=== PATIENT | male | born 1935 | race Caucasian/White ===

== ENCOUNTER 2016-09-29 20:13 | Inpatient (IN) | payer MEDICARE ==
--- NOTE | ~2016-09-29 | CR72 ---
[facility] A Service of [facility] RADIOLOGY TEXT RESULTS PATIENT: HEIKE CARTER LOCATION: [facility] 55[facility] : 34 UNIT #: [id number] AGE: [address]: Rosi Mijares MD SEX: M ORDER DR: [id number] [place] [id number] [facility]. [place], [place] [address] [id number] I MR#: [id number] Acc #: [id number] NAME: HEIKE CARTER. : 1935 SEX: M STUDY DATE/TIME: 09/29/2016 19:41 UNIT: [facility] ROOM: [facility] STUDY DESCRIPTION: CR Chest Single View Portable Attending Physician: Rosi Mijares M.D. Ordering Physician: Anthony French M.D. Primary Care Physician: Christy Kilgore M.D. MEDICAL IMAGING REPORT This report is preliminary unless electronic signature is present EXAM Portable chest. HISTORY Fever, hypoxia, congestion x2 weeks. COMPARISON 03/14/2014 FINDINGS Portable view of the chest demonstrates cardiomegaly. Prominence of the pulmonary vascular and interstitium may reflect underlying CHF. Loss of the right hemidiaphragm blunting the right CP angles suggests small right pleural effusion. Degenerative changes seen in the right shoulder. Sclerotic lesion noted in the left scapula may represent a benign bone lesion or enchondroma. IMPRESSION Findings suggestive of [id number] CHF and a small right pleural effusion. Dictated by... Declan Krishnan M.D. THIS IS AN ELECTRONICALLY VERIFIED REPORT Declan Krishnan M.D. at 09/30/2016 8:09 PM INGE/messi TD: 09/30/2016 08:49 JOB #: [id number] [facility] A Service of [facility] RADIOLOGY TEXT RESULTS PATIENT: HEIKE CARTER LOCATION: [facility] : 34 UNIT #: [id number] AGE: [address]: Rosi Mijares MD SEX: M ORDER DR: MEDICAL IMAGING REPORT Page 1 of 1 COPY
--- NOTE | ~2016-09-29 | CR72 ---
[facility] A Service of [facility] RADIOLOGY TEXT RESULTS PATIENT: HEIKE CARTER LOCATION: [place] [address] : 34 UNIT #: [id number] AGE: [address]: Rosi Mijares MD SEX: M ORDER DR: [id number] [facility] [address] [facility]. [place], [place] [address] [id number] I MR#: [id number] Acc #: [id number] NAME: HEIKE CARTER. : 1935 SEX: M STUDY DATE/TIME: 10/01/2016 15:38 UNIT: [facility] ROOM: [facility] STUDY DESCRIPTION: CR Chest Single View Portable Attending Physician: Rosi Mijares M.D. Ordering Physician: Gege Kimbrough D.O. Primary Care Physician: Christy Kilgore M.D. MEDICAL IMAGING REPORT This report is preliminary unless electronic signature is present EXAM Portable chest HISTORY Pneumonia, cough, congestion and shortness of air x2 weeks. COMPARISON 09/29/2016 FINDINGS Portable view of the chest demonstrates moderate lung volumes. There is loss of the right hemidiaphragm and blunting of the right CP angle suggesting small right pleural effusion. There is right basilar parenchymal opacity which may represent atelectasis or infiltrate. No dense consolidation. Probable trace amount of left sided pleural fluid. Stable cardiomegaly. Large air-filled middle mediastinal density consistent with a hiatal hernia. Upper lungs remain clear. No visible pneumothorax. Arthritic change is seen in the left shoulder. Dictated by... Declan Krishnan M.D. THIS IS AN ELECTRONICALLY VERIFIED REPORT Declan Krishnan M.D. at 10/02/2016 10:05 AM INGE/narinder TD: 10/02/2016 08:36 JOB #: [id number] MEDICAL IMAGING REPORT Page 1 of 1 COPY
--- NOTE | ~2016-09-29 | CO ---
Unit #: [id number] #: [id number] Patient: HEIKE CARTER [id number] [facility]. [address] [place], [place] [address] [id number] I MR#: [id number] NAME: HEIKE CARTER ROOM: 553 Age: 81 Sex: M Admission Date: 09/29/2016 : 1935 Attending Physician: Rosi Mijares M.D. Primary Care Physician: Christy Kilgore M.D. Consultation Date: 10/03/2016 CONSULTATION REPORT REASON FOR CONSULT Congestive heart failure. HISTORY OF PRESENT ILLNESS This is an 81-year-old white male known to Dr. Correia with a past medical history of coronary artery disease, status post PCI and stents several years ago with records pending. Patient had a 2D echocardiogram on March 18, 2014, which revealed a left ventricular ejection fraction of 40% to 45% with moderate hypokinesis of the left ventricle, moderate to severe mitral regurgitation, and moderate tricuspid regurgitation. Additional past medical history includes permanent atrial fibrillation, on Coumadin, hypertension, hyperlipidemia, COPD, chronic systolic congestive heart failure, and an old right bundle branch block. The patient has reported Parkinson, rheumatoid arthritis, GERD, and colon polyps. The patient was recently admitted to [facility] with pneumonia and a hiatal hernia. He presented to the emergency department with complaints of shortness of breath. The shortness of breath has been present for the last several days. He has also had a cough and chills. There are no reports of fever. He denies chest pain. He has had some shortness of breath with exertion. He sleeps with two pillows and denies PND or orthopnea. He admits to occasional palpitations but nothing sustained. He has had some recent diarrhea. He was admitted to the hospital with concern for pneumonia, congestive heart failure, and COPD. He was started on vancomycin and IV Lasix. In addition, he was given Solu-Medrol and DuoNebs. Influenza A and B were negative. Blood cultures were negative. BNP was mildly elevated at 473 on admission. Chest x-ray revealed findings suggestive of mild to moderate congestive heart failure with a small right pleural effusion. Cardiology was consulted for congestive heart failure. PAST MEDICAL HISTORY 1. Coronary artery disease with history of PCI and stents years ago. Records pending. 2. A 2D echocardiogram on March 18, 2014, revealed a moderately dilated left ventricle, ejection fraction 40% to 45%, moderate hypokinesis of the left ventricle, moderate to severe mitral regurgitation, and moderate tricuspid regurgitation. 3. Permanent atrial fibrillation on chronic anticoagulation with Coumadin. 4. Hypertension. 5. Hyperlipidemia. Unit #: [id number] #: [id number] Patient: HEIKE CARTER 6. Old right bundle branch block. 7. Chronic systolic congestive heart failure. 8. Chronic obstructive pulmonary disease. 9. Gastroesophageal reflux disease. 10. Reported Parkinson. 11. Rheumatoid arthritis. 12. Colon polyps. 13. Reformed tobacco abuse. PAST SURGICAL HISTORY 1. Knee surgery. 2. Cardiac catheterization, PCI, and stents. HOME MEDICATIONS 1. Milk of Magnesia 30 mL p.o. daily. 2. Multivitamin 1 tablet p.o. daily. 3. [place] 7.5/325 mg 1 tablet p.o. every 6 hours p.r.n. 4. Pepcid 20 mg p.o. daily. 5. Senna 8.6 mg p.o. daily. 6. Folic acid 1 mg p.o. daily. 7. Gabapentin 600 mg p.o. b.i.d. 8. Lasix 40 mg p.o. b.i.d. 9. Melatonin 6 mg p.o. at bedtime. 10. Methotrexate 2.5 mg p.o. every 7 days on Sunday. 11. Coreg 6.25 mg p.o. b.i.d. 12. Coumadin 5 mg p.o. daily. 13. Daliresp 500 mcg p.o. daily. 14. Ipratropium and albuterol 2.5 mg inhalation q.4 p.r.n. 15. Potassium chloride 10 mEq p.o. daily. 16. Protonix 40 mg p.o. b.i.d. ALLERGIES No known drug allergies. SOCIAL HISTORY The patient is a reformed smoker. There are no reports of alcohol or illicit drug use. The patient currently resides in a prison. FAMILY HISTORY Cancer. REVIEW OF SYSTEMS A 10-point review of systems is negative except for details noted above in the History of Present Illness. PHYSICAL EXAMINATION VITAL SIGNS: Temperature 97.6, pulse 59, and blood pressure 111/68. CONSTITUTIONAL: This is an 81-year-old white male in no acute distress. SKIN: Warm and dry. NECK: Supple. No jugular vein distention. No hepatojugular reflux. Normal carotid upstrokes. No carotid bruits auscultated. HEART: S1 and S2. Regular rate and rhythm. No murmurs, rubs, or gallops. LUNGS: Bilateral breath sounds have scattered wheezes and rhonchi. ABDOMEN: Soft, nontender, and nondistended. Positive bowel sounds auscultated x4 quadrants. No ascites noted. EXTREMITIES: Bilateral lower extremities have no pretibial pitting edema. DP and PT pulses 2+. Capillary refill less than 3 seconds. Unit #: [id number] #: [id number] Patient: HEIKE CARTER DIAGNOSTIC STUDIES LABORATORY: White blood cell count 5.4, hemoglobin 10.9, hematocrit 34.3, and platelets 172,000. Sodium 140, potassium 3.5, chloride 90, CO2 of 41, BUN 30, creatinine 1.1, glucose 156, total protein 6.2, albumin 2.8, and magnesium 2.1 INR 3. Previous INR 1.7 to 2.5. Troponin 0.05 and 0.05. Influenza A and B negative. Urinalysis with 3+ leukocytes and positive yeast. Blood culture, preliminary, negative. BNP 473 on September 30, 2016. IMAGING: Chest x-ray initially on September 29, 2016, revealed a suggestion of mild to moderate congestive heart failure with a small right pleural effusion. CARDIOLOGY: EKG revealed atrial fibrillation with rapid ventricular response at 120 beats per minute. Motion artifact. Right bundle branch block. QTc prolonged at 517 msec. IMPRESSION 1. Acute hypoxic respiratory failure. 2. Acute exacerbation of chronic obstructive pulmonary disease. 3. Pneumonia. 4. Acute on chronic systolic congestive heart failure, mild. 5. History of moderate to severe mitral regurgitation and moderate tricuspid regurgitation. 6. Nonsustained ventricular tachycardia. 7. Permanent atrial fibrillation with rapid ventricular response. 8. Hypertension. 9. Hyperlipidemia. 10. Old right bundle branch block. 11. Coronary artery disease with history of percutaneous coronary intervention and stents. Details pending. 12. Large hiatal hernia. PLAN 1. The patient presented to the hospital with complaints of shortness of breath. He was admitted for acute exacerbation of COPD and pneumonia, as well as congestive heart failure. 2. Cardiology was consulted for management of congestive heart failure. 3. The patient is on IV Lasix which can likely be changed to oral dosing soon. 4. He is on a beta emil. Will initiate an SHERRY inhibitor for afterload reduction. 5. The patient has a history of CAD but denies chest pain. Will obtain previous stress test and/or cardiac catheterization reports from Dr. Correia's office. If no recent testing, could consider repeat ischemic workup once lungs stable. 6. The patient is on Coumadin for chronic anticoagulation. His INR is currently 3. 1. Dictated by... Ayanna Davison APRN for Easton Lloyd/ivy TD: 10/05/2016 17:53 JOB #: [id number] Unit #: [id number] #: [id number] Patient: HEIKE CARTER CONSULTATION REPORT Page 1 of 1 X X CONSULTATION REPORT
--- NOTE | ~2016-09-29 | TOC ---
Unit #: [id number] #: [id number] Patient: HEIKE CARTER [id number] [address] [address] [id number] I MR#: [id number] NAME: HEIKE CARTER. ROOM: 553 Age: 81 Sex: M Admission Date: 09/29/2016 : 1935 Attending Physician: Rosi Mijares M.D. Primary Care Physician: Christy Kilgore M.D. TRANSFER OF CARE SUMMARY DISCHARGE DIAGNOSES 1. Acute on chronic hypercapnic hypoxic respiratory failure. 2. Acute diastolic heart rate failure. 3. Chronic atrial fibrillation with PVCs, currently sinus pauses 2.5 seconds and bradycardia. 4. Acute chronic obstructive pulmonary disease exacerbation. 5. Right lower lobe pneumonia with Stenotrophomonas. 6. Super therapeutic INR. The patient's Coumadin is on hold. 7. Mild hyponatremia. 8. Sinus pauses. Metoprolol is on hold. 9. Chronic respiratory failure with hypoxia. 10. Coronary artery disease with previous stents. 11. Rheumatoid arthritis. 12. Hypertension. 13. Gastroesophageal reflux disease. 14. Hiatal hernia. 15. Chronic pain. 16. BPH. 17. History of Parkinson disease. CONSULTANTS Dr. Kohli. Dr. Posadas. PROCEDURES PERFORMED None. DIAGNOSTIC DATA LABORATORY: Sputum culture is growing Stenotrophomonas. INR is 5.1. White blood cell count 11.6, hemoglobin 11.4, platelets 212. Sodium 134, potassium 3.8, creatinine 1.0, calcium 8.2. Blood cultures negative. Troponin 0.04. C-diff negative. Influenza A and B negative. IMAGING: Chest x-ray shows right basilar atelectasis versus infiltrates. HOSPITAL COURSE The patient is an 81-year-old patient admitted with shortness of breath. Acute on chronic hypercapnic hypoxic respiratory failure: Currently he is on 2 liters. Continue with oxygen. Acute diastolic heart failure: The patient was seen by Dr. Kohli. The patient received diuretics. Currently he is on Lasix 40 mg b.i.d. Continue with that. Unit #: [id number] #: [id number] Patient: HEIKE CARTER Acute chronic obstructive pulmonary disease with exacerbation: The patient was started on IV Solu-Medrol and duo-nebs. Currently breathing better. He has received Depo-Medrol. Dr. Posadas is closely following. Right lower lobe pneumonia with Stenotrophomonas: The patient is currently on broad spectrum antibiotics. He is on IV Rocephin and Zithromax. Chronic atrial fibrillation: Multiple PVCs. Currently having sinus pauses up to 2.5 seconds. Metoprolol is on hold. Cardiology notified. Super therapeutic INR: Coumadin is on hold. INR is 5.1. Monitor closely daily. The patient need rehab. Discussed with the daughter. Dictated by... Easton Chan TD: 10/06/2016 13:14 JOB #: [id number] TRANSFER OF CARE SUMMARY Page 1 of 1 X Rosi Mijares MD TRANSFER OF CARE SUMMARY
--- NOTE | ~2016-09-29 | CR97 ---
[facility] A Service of [facility] RADIOLOGY TEXT RESULTS PATIENT: HEIKE CARTER LOCATION: [facility] 55[facility] : 34 UNIT #: [id number] AGE: [address]: Rosi Mijares MD SEX: M ORDER DR: [id number] [facility] [address] [facility]. [place], [place] [address] [id number] I MR#: [id number] Acc #: [id number] NAME: HEIKE CARTER. : 1935 SEX: M STUDY DATE/TIME: 10/02/2016 9:11 UNIT: [facility] ROOM: [facility] STUDY DESCRIPTION: CR Esophagram Attending Physician: Rois Mijares M.D. Ordering Physician: Gege Kimbrough D.O. Primary Care Physician: Christy Kilgore M.D. MEDICAL IMAGING REPORT This report is preliminary unless electronic signature is present EXAM Single contrast barium esophagram. INDICATIONS This patient has a history of dysphagia and reflux as well as Parkinson disease. TECHNIQUE Patient is relatively immobile. He was placed supine on the fluoroscopy table and the table was tilted. He was subsequently administered thin barium. No obvious stricture or mass lesion was seen. Patient does appear to have abnormal esophageal motility with poor stripping of the esophagus and multiple tertiary contractions seen. There did appear to be some spontaneous reflux. I did not see any definite evidence of aspiration, although there may have been some penetration. Moderate to large hiatal hernia was again noted. This was also seen on patient's prior chest CT from November 23, 2012. Total fluoroscopy time was 1.7 minutes and a total of 7 fluoroscopic images were obtained. IMPRESSION 1. This was a extremely technically limited examination due to this patient's limited mobility. I did not see any obvious stricture or mass lesion, although the patient was noted to have disordered esophageal motility with poor stripping of the esophagus and multiple tertiary contractions noted. There also did appear to be some reflux. 2. Vdrhujvw-jt-dasjf hiatal hernia. This was also better seen on the patient's prior CT from 2012. 3. I did not see any obvious aspiration on this study. Potentially there was some penetration. If there is concern for aspiration, this would be better assessed with modified barium swallow. Dictated by... Glenys Swartz M.D. [facility] A Service of [facility] RADIOLOGY TEXT RESULTS PATIENT: HEIKE CARTER LOCATION: [place] [address] : 34 UNIT #: [id number] AGE: [address]: Rosi Mijares MD SEX: M ORDER DR: THIS IS AN ELECTRONICALLY VERIFIED REPORT Glenys Swartz M.D. at 10/03/2016 3:43 PM AFF/pc TD: 10/03/2016 10:50 JOB #: [id number] MEDICAL IMAGING REPORT Page 1 of 1 COPY
--- NOTE | ~2016-09-29 | CR72 ---
[facility] A Service of [facility] RADIOLOGY TEXT RESULTS PATIENT: HEIKE CARTER LOCATION: [place] [address] : 34 UNIT #: [id number] AGE: [address]: Kimberly Groves MD SEX: M ORDER DR: [id number] [facility] [address] [facility]. [place], [place] [address] [id number] I MR#: [id number] Acc #: [id number] NAME: HEIKE CARTER : 1935 SEX: M STUDY DATE/TIME: 10/09/2016 10:08 UNIT: [facility] ROOM: [facility] STUDY DESCRIPTION: CR Chest Single View Portable Attending Physician: Kimberly Groves M.D. Ordering Physician: Cassia Cai A.P.R.N. Primary Care Physician: Christy Kilgore M.D. MEDICAL IMAGING REPORT This report is preliminary unless electronic signature is present EXAM Portable chest INDICATION 81-year-old male with shortness of breath, pneumonia and cough since September 29. COMPARISON 10/04/2016 FINDINGS There are no new infiltrates. Heart size stable. Stable large hiatal hernia. Degenerative changes of the shoulders. IMPRESSION Stable chest. No acute findings. Dictated by... Damon Krishnan M.D. THIS IS AN ELECTRONICALLY VERIFIED REPORT Damon Krishnan M.D. at 10/09/2016 11:53 AM TATIANA/narinder TD: 10/09/2016 11:22 JOB #: [id number] MEDICAL IMAGING REPORT Page 1 of 1 COPY
--- NOTE | ~2016-09-29 | EKG ---
PATIENT: HEIKE CARTER UNIT #: [id number] Ventricular Rate: 120 BPM Atrial Rate: 115 BPM QRS Duration: 148 ms Q-T Interval: 366 ms QTC Calculation(Bezet): 517 ms Calculated R Delong: 5 degrees Calculated T Delong: 30 degrees Diagnosis Line: Atrial fibrillation with rapid ventricular Diagnosis Line: response Diagnosis Line: Right bundle branch block with repolarization Diagnosis Line: abnormality Diagnosis Line: Abnormal ECG Diagnosis Line: No previous ECGs available Diagnosis Line: Confirmed by RAMONA CARROLL MD ([id number]) on 10/02/2016 Diagnosis Line: 10:48:24 PM INTERPRETING MD: GLEN KEY
--- NOTE | ~2016-09-29 | CO ---
Unit #: [id number] #: [id number] Patient: HEIKE CARTER [id number] [address] [place], [place] [address] [id number] I MR#: [id number] NAME: HEIKE CARTER ROOM: 553 Age: 81 Sex: M Admission Date: 09/29/2016 : 1935 Attending Physician: Rosi Mijares M.D. Primary Care Physician: Christy Kilgore M.D. Consultation Date: 10/01/2016 CONSULTATION REPORT REASON FOR CONSULTATION Shortness of breath. HISTORY OF PRESENT ILLNESS This is an 81-year-old male, who was admitted 2 days ago for acute CHF and COPD exacerbation. We are asked to help with management of his bleeding disorders. The patient has known history of COPD, CHF, coronary artery disease, hypertension, atrial fibrillation, rheumatoid arthritis, reflux disease, BPH, and Parkinson's and is from a alf. He came in originally 2 days ago with fevers of 103. He responded quickly to antibiotics with no further fevers and no leukocytosis; however, he has continued to have wheezing, rhonchi, cough, and shortness of breath. Chest x-ray looked consistent with pulmonary edema; however, could not rule out clinical picture of pneumonia. PAST MEDICAL HISTORY COPD, coronary artery disease, CHF, hypertension, atrial fibrillation, rheumatoid arthritis, reflux disease, hiatal hernia, chronic pain, BPH, Parkinson disease. PAST SURGICAL HISTORY Right total knee, PCI with stents. ALLERGIES None. MEDICATIONS Protonix, Coreg, Coumadin, Daliresp, DuoNeb, Neurontin, Lasix, melatonin, methotrexate, Pepcid, and [place]. SOCIAL HISTORY The patient quit smoking over 25 years ago. Denies alcohol or illicit drug use. Currently lives in a alf. PHYSICAL EXAMINATION VITAL SIGNS: Stable. He is afebrile at this time. GENERAL: The patient is alert and oriented x1. HEENT: Eyes; PERRLA. Extraocular movements are intact. Sclerae are clear. Nose is patent and symmetrical without rhinitis. Throat without erythema or exudate. Tongue size normal. NECK: Without JVD, carotid bruit, or thyromegaly. LYMPHATICS: Lymph nodes without submandibular, anterior cervical, or supraclavicular lymphadenopathy. HEART: Regular rate and rhythm without murmur appreciated. No thrills Unit #: [id number] #: [id number] Patient: HEIKE CARTER palpated. LUNGS: Rhonchi bilaterally. There is no egophony or dullness to percussion. The patient is not using accessory muscles. ABDOMEN: Soft and nontender without hepatosplenomegaly. EXTREMITIES: Without clubbing, cyanosis, or edema. SKIN: Warm, dry, and intact with no unusual lesions or diaphoresis. NEUROLOGIC: Cranial nerves II through XII intact bilaterally. Muscle strength and sensation are equal and appropriate in all 4 extremities. IMPRESSION 1. Resolved fevers with treatment suspected for health-care associated pneumonia. 2. Acute congestive heart failure. 3. Acute hypoxemia on chronic hypercarbic hypoxemic respiratory insufficiency secondary to chronic obstructive pulmonary disease exacerbation. Pulmonary edema however at this point cannot rule out interstitial lung disease from rheumatoid arthritis on methotrexate. 4. Gastroesophageal reflux disease. 5. Benign prostatic hyperplasia. 6. Chronic atrial fibrillation. RECOMMENDATIONS 1. Check chest x-ray. If back to baseline, no further need; however if worse, we will check CT of the chest. 2. Add Pulmicort and Brovana nebs. 3. Assess swallow. 4. We will follow. Dictated by... Tod Pierce/shannon TD: 10/02/2016 03:20 JOB #: [id number] CONSULTATION REPORT Page 1 of 1 X Gege Kimbrough DO X CONSULTATION REPORT
--- NOTE | ~2016-09-29 | DS ---
Unit #: [id number] #: [id number] Patient: HEIKE CARTER [id number] [address] [place], [place] [address] [id number] MR#: [id number] NAME: HEIKE CARTER ROOM: 55 Age: 81 Sex: M Admission Date: 09/29/2016 : 1935 Discharge Date: 10/09/2016 Attending Physician: Kimberly Groves M.D. Primary Care Physician: Christy Kilgore M.D. DISCHARGE SUMMARY DISPOSITION [facility]. FINAL DIAGNOSES 1. Acute on chronic hypercapnic hypoxic respiratory failure. 2. Acute diastolic heart failure. 3. Chronic atrial fibrillation, Coumadin toxicity. 4. Right lower lobe pneumonia with stenotrophomonas. SECONDARY DIAGNOSES 1. Nonsustained ventricular tachycardia. 2. Gastroesophageal reflux disease. 3. Chronic pain. 4. Benign prostatic hypertrophy. 5. Parkinson disease. 6. Coronary disease with previous stents in the past. 7. Rheumatoid arthritis. 8. Hyponatremia. CONSULTANTS 1. Dr. Kohli, Cardiology. 2. Dr. Charlie Posadas, Pulmonary. HOSPITAL COURSE The patient is a pleasant 79-year-old gentleman who basically was admitted for shortness of breath and managed for acute on chronic hypercapnic hypoxic respiratory failure. He has been given bronchodilators and diuretics and antibiotics. He did have some pneumonia as well for which he did receive antibiotics. He also had a component of acute on chronic obstructive pulmonary disease with active exacerbation which he was also treated for. He was evaluated and found suitable and stable; however, anticoagulation made his INR go as high as 5.1. His Coumadin was held. At the time of the dictation, his INR is 1.3. On further discussion with Dr. Kohli, the plan really is to put him back on oral Coumadin without a bridge and for outpatient dosing with a goal INR between 2-3 by his primary physician at the nursing facility. He will be discharged in stable condition. DISCHARGE MEDICATIONS 1. [place] 5/325 one tablet p.o. q.6 hourly p.r.n. prescription written. 2. Combivent MDI 3 mL every four hours as needed. 3. Pulmicort one neb twice daily. 4. Perforomist 20 mcg nebs twice daily. 5. Prednisone taper. Unit #: [id number] #: [id number] Patient: HEIKE CARTER 6. Coumadin 2.5 mg p.o. daily. PT/INR on October 09, 2016 is 1.3. PT/INR every 48 hours, will defer to the long term physician. 7. Neurontin 600 mg p.o. twice daily. 8. Methotrexate 2.5 mg p.o. every seven days, given Sunday. 9. Lopressor 12.5 mg p.o. twice daily. 10. Senokot S two tablets p.o. twice daily. 11. Milk of Magnesia 30 mL p.o. daily p.r.n. constipation. 12. MiraLax 17 g p.o. daily p.r.n. constipation. 13. Senokot 8.6 mg p.o. daily. 14. Lasix 40 mg p.o. twice daily. 15. Zestril 5 mg at bedtime. 16. Multivitamin one tablet daily. 17. Melatonin 6 mg at bedtime. 18. Protonix 40 mg p.o. daily. 19. Potassium chloride 40 mEq p.o. daily. 20. Daliresp 500 mcg p.o. daily. 21. He will have a flu shot and pneumonia shot prior to being discharged. 22. Folic acid 1 mg p.o. daily. Recommend that his long term physician follow up his electrolytes as well as his INR as well as his hemogram. Time spent coordinating discharge is north of 40 minutes. Dictated by... Easton Gayle TD: 10/09/2016 10:58 JOB #: [id number] DISCHARGE SUMMARY Page 1 of 1 X Kimberly Groves MD DISCHARGE SUMMARY
--- NOTE | ~2016-09-29 | HP ---
Unit #: [id number] #: [id number] Patient: HEIKE CARTER [id number] [address] [place], [place] [address] [id number] MR#: [id number] NAME: HEIKE CARTER. ROOM: 553 Age: 81 Sex: M Admission Date: 09/29/2016 : 1935 Attending Physician: Rosi Mijares M.D. Primary Care Physician: Christy Kilgore M.D. HISTORY AND PHYSICAL CHIEF COMPLAINT Fever of 103, cough, shortness of breath, productive cough, brownish-yellow phlegm. DISCUSSION This is an 81-year-old gentleman, who has a past medical history of chronic respiratory failure with hypoxia, chronic obstructive pulmonary disease, congestive heart failure, coronary artery disease with previous stent, hypertension, chronic atrial fibrillation, rheumatoid arthritis, gastroesophageal reflux disease, hiatal hernia, chronic pain, benign prostatic hypertrophy, Parkinson's disease. [facility]. [facility] was [facility] from the [facility] to the emergency room with chief complaint of respiratory distress, fever of 103, cough with yellowish productive phlegm, wheezing, rhonchi, and the patient, even though chest x-ray does not show infiltrate shows bilateral worsening of congestive heart failure but clinically seems pneumonia and he has been admitted. He is alert, awake, and oriented x2. He said he feels very sick, tired, fatigued, weak, cough, shortness of breath, but denied chest pain, denied nausea or vomiting. No hemoptysis. No loss of consciousness. PAST MEDICAL HISTORY 1. History of chronic respiratory failure with hypoxia. 2. History of chronic obstructive pulmonary disease. 3. Coronary artery disease with previous stent. 4. History of congestive heart failure. 5. Hypertension. 6. Chronic atrial fibrillation. 7. Rheumatoid arthritis. 8. Gastroesophageal reflux disease. 9. Hiatal hernia. 10. Chronic pain. 11. History of benign prostatic hypertrophy. 12. Parkinson's disease. PAST SURGICAL HISTORY 1. History of right total knee arthroplasty. 2. History of cardiac cath with stent. SOCIAL HISTORY Used to smoke but quit twenty-five years ago, denied alcohol, denied illicit drug use. Currently lives in [facility]. CODE STATUS His code status is DNR as per wishes of the patient. Also, family was Unit #: [id number] #: [id number] Patient: HEIKE CARTER available at bedside, his daughter is available and nephew and they confirm that they want the patient DO NOT RESUSCITATE. JAIL MEDICATIONS Is the followin. Protonix 40 mg twice a day 2. Coreg 6.25 twice a day 3. Coumadin 5 mg daily 4. Daliresp 500 mcg daily 5. Duo nebulizer p.r.n. 6. Potassium chloride 10 mEq daily 7. Folic acid 1 mg daily 8. Gabapentin 600 mg twice daily 9. Lasix 40 mg twice daily 10. Melatonin 6 mg at bedtime 11. Methotrexate 12.5 mg tablet every week 12. Milk of magnesia 30 mL for constipation 13. Multivitamin one tablet daily 14. [place] 7.5/325 one tablet q.6h p.r.n. 15. Pepcid 20 mg daily 16. Senna one tablet p.o. daily REVIEW OF SYSTEMS Fourteen review of systems negative except in the history of present illness. PHYSICAL EXAMINATION GENERAL: Middle-aged male lying in the bed comfortably, currently not in any distress. He is alert, awake, and oriented x2, comfortable, not in any distress. VITAL SIGNS: His current vitals are the following, temperature is 100.3, heart rate 109, respiratory rate 26, and blood pressure 123/72, and oxygen 93% on room air. HEENT EXAMINATION: Pupils equal reactive to light and accommodation. Head: Normocephalic and atraumatic. NECK: Supple. No jugular venous distention. HEART: S1 and S2, regular rhythm. LUNGS: Bilateral rhonchi and scattered wheeze, positive few basal crackles, poor air entry. ABDOMEN: Soft, nontender, and nondistended. Bowel sounds are positive. EXTREMITIES: Inspection normal. No cyanosis, no clubbing, and no edema. NEUROLOGIC: No focal neurologic deficit. SKIN: No rash. DIAGNOSTIC STUDIES LABORATORY: Laboratory workup is the following, sodium 134, potassium 4.1, chloride 89, glucose 109, BUN 21, creatinine 0.1, LFT within normal limits. Lactic acid 1.2, INR is 1.7, white count 6.9, hemoglobin 11, hematocrit 35, platelets 133. (1) is negative, troponin less than 0.01. IMAGING: Chest x-ray shows small right pleural effusion and underlying changes of worsening congestive heart failure. CARDIOVASCULAR: EKG, atrial fibrillation with a right bundle branch block. ASSESSMENT/PLAN 1. Clinically pneumonia with [facility] patient, start the patient on Unit #: [id number] #: [id number] Patient: HEIKE CARTER IV Zosyn and vancomycin. 2. Acute exacerbation of congestive heart failure, BNP is not done. Chest x-ray suspicious for worsening congestive heart failure, will place IV diuretics and get repeat BNP. 3. Chronic respiratory failure with hypoxia. 4. Chronic obstructive pulmonary disease 5. History of coronary artery disease. 6. Hypertension. 7. Chronic atrial fibrillation. 8. Rheumatoid arthritis. 9. Gastroesophageal reflux disease. 10. Hiatal hernia. 11. Chronic pain. 12. History of benign prostatic hypertrophy. 13. History of Parkinson's disease. 14. DVT prophylaxis, patient on Coumadin. 15. Once again the patient is a DO NOT RESUSCITATE as per his wishes and also family is available at bedside, I will, myself, confirm with the family. Dictated by Easton Handley/bijna TD: 09/30/2016 08:19 JOB #: [id number] HISTORY AND PHYSICAL Page 1 of 1 X X HISTORY AND PHYSICAL
--- NOTE | ~2016-09-29 | CR63 ---
[facility] A Service of [facility] & [facility] RADIOLOGY TEXT RESULTS PATIENT: HEIKE CARTER LOCATION: [place] [address] : [birth year] UNIT #: [id number] AGE: [address]: Rosi Mijares MD SEX: M ORDER DR: [id number] [facility] [address] [place], [place] [address] [id number] MR#: [id number] Acc #: [id number] NAME: HEIKE CARTER : 1935 SEX: M STUDY DATE/TIME: 10/04/2016 9:42 UNIT: [facility] ROOM: [facility] STUDY DESCRIPTION: CR Chest 2 View Attending Physician: Rosi Mijares M.D. Ordering Physician: Sherif Posadas M.D. Primary Care Physician: Christy Kilgore M.D. MEDICAL IMAGING REPORT This report is preliminary unless electronic signature is present EXAM 2 views chest 10/04/2016 HISTORY COPD. Cough, pneumonia, short of air, CHF, began 09/29/2016. PA and lateral radiographs of the chest are presented. Comparison 10/01 16. No acute bony abnormality. Stable mild cardiac enlargement. Again noted is a large hiatal hernia. The lungs are well inflated. Right lung clear. Patchy densities seen at the left lung base on prior examination have resolved. Blunting of the right lateral costophrenic sulcus, almost completely resolved. Findings suggest clearance of right basilar atelectasis and/or pneumonia and near complete clearance of right pleural fluid. There is no pneumothorax. No suspicious nodule. Remainder lungs clear. Degenerative changes in the bilateral shoulders, left significantly greater than right. Stable. Dictated by... Heike Robles M.D. THIS IS AN ELECTRONICALLY VERIFIED REPORT Heike Robles M.D. at 10/05/2016 5:55 PM CECILY/bull TD: 10/04/2016 14:26 JOB #: [id number] MEDICAL IMAGING REPORT Page 1 of 1 COPY
[2016-09-29 19:50] LABS: POC - CKMB 1.3 ng/mL (0.0-7.9); POC - TROPONIN <0.05 ng/mL (<=0.05)
[2016-09-29 19:56] LABS: BASOPHIL% 0.3 % (0-2.5); EOSINOPHIL# 0.1 X10e3 (0-0.7); EOSINOPHIL% 1.3 % (0.0-7.0); LYMPHOCYTE# 0.7 X10e3 (1.0-3.5); LYMPHOCYTE% 10.6 % (17.0-45.0); MEAN CELL VOLUME 88.5 FL (83-96); MEAN CORPUSCULAR HEMOGLOBIN 27.8 PG (28-34); MEAN CORPUSCULAR HGB CONC 31.5 g/dL (30-36); MEAN PLATELET VOLUME 7.7 FL (6.5-11.5); MONOCYTE# 0.4 X10e3 (0-1.0); MONOCYTE% 6.5 % (3.0-12.0); NEUTROPHIL# 5.6 X10e3 (1.5-7.1); NEUTROPHIL% 81.3 % (40-75); PLATELET COUNT 133 X10e3 (140-420); RED BLOOD COUNT 3.95 X10e (3.90-5.60); WHITE BLOOD COUNT 6.9 X10e3 (4.0-10.5)
[2016-09-29 19:59] LABS: INFLUENZA A NEG (NEG); INFLUENZA B NEG (NEG)
[2016-09-29 20:00] LABS: DIFF IND NO
[2016-09-29 20:08] LABS: INR 1.7; PARTIAL THROMBOPLASTIN TIME 26.4 SECONDS (23.5-31.3)
[~2016-09-29 20:13] MED LIST: ALB/IPRATROPIUM/1 E1 INH; COREG6.25 MG PO; COUMADIN5 MG PO; DALIRESP500 MCG PO; FAMOTIDINE PO; FOLIC ACID1 MG PO; GABAPENTIN600 MG PO; HYDROCODON-ACE1 EAC9 PO; LASIX PO; MELATONIN3 M4 PO; METHOTREXATE2.5 MG PO; MILK OF MAGNESIA PO; MULTIVITAMINS1 EAC2 PO; POTASSIUM CHLO10 MEQ PO; PROTONIX PO; SENNA8.6 M1 PO
[2016-09-29 20:37] LABS: BILIRUBIN, DIRECT 0.2 mg/dL (0.0-0.2); BILIRUBIN,INDIRECT 0.4 mg/dL (0.0-0.9); BILIRUBIN,TOTAL 0.6 mg/dL (0.2-2.0); BUN/CREATININE RATIO 23.33; CALCIUM SERUM 8.4 mg/dL (8.4-10.2); CREATININE SERUM 0.9 mg/dL (0.6-1.4); GLOM FILT RATE Estimated 79.3 mL/min (>60); POTASSIUM 4.1 mmol/L (3.5-5.1); PROTEIN TOTAL SERUM 6.8 g/dL (6.0-8.3)
[2016-09-29 21:20] LABS: POC - CKMB <1.0 ng/mL (0.0-7.9); POC - TROPONIN <0.05 ng/mL (<=0.05)
[2016-09-30 01:53] LABS: BASOPHIL% 0.2 % (0-2.5); DIFF IND NO; HEMATOCRIT 34.9 % (38.0-50.0); LYMPHOCYTE# 0.8 X10e3 (1.0-3.5); LYMPHOCYTE% 12.9 % (17.0-45.0); MEAN CELL VOLUME 88.9 FL (83-96); MEAN CORPUSCULAR HGB CONC 31.5 g/dL (30-36); MEAN PLATELET VOLUME 7.8 FL (6.5-11.5); MONOCYTE# 0.1 X10e3 (0-1.0); MONOCYTE% 1.6 % (3.0-12.0); NEUTROPHIL# 5.1 X10e3 (1.5-7.1); NEUTROPHIL% 85.3 % (40-75); PLATELET COUNT 136 X10e3 (140-420); RED BLOOD COUNT 3.93 X10e (3.90-5.60); RED CELL DISTRIBUTION WIDTH 16.7 % (11.0-15.5); WHITE BLOOD COUNT 5.9 X10e3 (4.0-10.5)
[2016-09-30 02:36] LABS: CALCIUM SERUM 8.1 mg/dL (8.4-10.2); GLOM FILT RATE Estimated 69.8 mL/min (>60); POTASSIUM 3.9 mmol/L (3.5-5.1)
[2016-10-01 05:12] LABS: HEMOGLOBIN 10.5 gm/dL (13.0-16.0); MEAN CELL VOLUME 88.1 FL (83-96); MEAN CORPUSCULAR HGB CONC 31.8 g/dL (30-36); MEAN PLATELET VOLUME 7.9 FL (6.5-11.5); RED BLOOD COUNT 3.74 X10e (3.90-5.60); RED CELL DISTRIBUTION WIDTH 17.1 % (11.0-15.5); WHITE BLOOD COUNT 7.3 X10e3 (4.0-10.5)
[2016-10-01 05:31] LABS: INR 1.8; PROTHROMBIN TIME (PATIENT) 19.2 SECONDS (9.6-11.5)
[2016-10-01 05:59] LABS: ALBUMIN SERUM 2.8 g/dL (3.5-5.0); BILIRUBIN,TOTAL 0.4 mg/dL (0.2-2.0); CALCIUM SERUM 8.3 mg/dL (8.4-10.2); GLOM FILT RATE Estimated 69.8 mL/min (>60); MAGNESIUM 2.2 mg/dL (1.6-3.0); POTASSIUM 3.3 mmol/L (3.5-5.1); PROTEIN TOTAL SERUM 6.4 g/dL (6.0-8.3)
[2016-10-01 09:33] LABS: ARTERIAL BLOOD GAS PCO2 63.4 mmHg (35.0-45.0); ARTERIAL BLOOD GAS PO2 52.1 mmHg (80.0-100)
[2016-10-01 09:34] LABS: ARTERIAL BLD GAS O2 SATURATION 85.4 % (90.0-100.0); ARTERIAL BLOOD GAS ALLEN TEST NORMAL; ARTERIAL BLOOD GAS ART SITE LEFT RADIAL; ARTERIAL BLOOD GAS CARBOXY HB 0.9 %sat (0.0-9.0); ARTERIAL BLOOD GAS DELIVERY NASAL CANNULA; ARTERIAL BLOOD GAS HCO3 42.9 mmol/L; ARTERIAL BLOOD GAS MET HB 0.4 %sat (0.0-2.0); ARTERIAL DRAW? YES
[2016-10-01 23:18] LABS: URINE APPEARANCE CLOUDY; URINE BILIRUBIN NEG (NEG); URINE BLOOD TRACE (NEG); URINE COLOR YELLOW; URINE GLUCOSE NEG (NEG); URINE KETONE NEG (NEG); URINE LEUKOCYTE ESTERASE 3+ (NEG); URINE NITRATE NEG (NEG); URINE PH 7.5 (5-8); URINE PROTEIN TRACE (NEG); URINE SPECIFIC GRAVITY 1.009 (1.003-1.035); URINE UROBILINOGEN 0.2 MG/DL (NEG)
[2016-10-01 23:20] LABS: URBCS1 AUWI 0-2 /[HPF] (0-2); URINE BACTERIA AUWI NEG (NEGATIVE); UWBCS1 AUWI 25-50 (0-5)
[2016-10-01 23:29] LABS: URINE SQUAMOUS EPITHELIAL CELL MOD /[HPF]; URINE YEAST PRESENT
[2016-10-02 06:14] LABS: HEMATOCRIT 35.1 % (38.0-50.0); MEAN CELL VOLUME 88.9 FL (83-96); MEAN CORPUSCULAR HEMOGLOBIN 27.9 PG (28-34); MEAN CORPUSCULAR HGB CONC 31.3 g/dL (30-36); MEAN PLATELET VOLUME 8.2 FL (6.5-11.5); RED BLOOD COUNT 3.95 X10e (3.90-5.60); RED CELL DISTRIBUTION WIDTH 16.6 % (11.0-15.5); WHITE BLOOD COUNT 4.6 X10e3 (4.0-10.5)
[2016-10-02 07:15] LABS: ALBUMIN SERUM 2.8 g/dL (3.5-5.0); BILIRUBIN,TOTAL 0.5 mg/dL (0.2-2.0); CALCIUM SERUM 8.9 mg/dL (8.4-10.2); GLOM FILT RATE Estimated 69.8 mL/min (>60); MAGNESIUM 2.1 mg/dL (1.6-3.0); POTASSIUM 4.6 mmol/L (3.5-5.1); PROTEIN TOTAL SERUM 6.2 g/dL (6.0-8.3)
[2016-10-02 14:16] LABS: INR 2.5; PROTHROMBIN TIME (PATIENT) 26.7 SECONDS (9.6-11.5)
[2016-10-03 06:15] LABS: HEMATOCRIT 34.3 % (38.0-50.0); HEMOGLOBIN 10.9 gm/dL (13.0-16.0); MEAN CELL VOLUME 87.6 FL (83-96); MEAN CORPUSCULAR HGB CONC 31.9 g/dL (30-36); MEAN PLATELET VOLUME 8.3 FL (6.5-11.5); RED BLOOD COUNT 3.91 X10e (3.90-5.60); RED CELL DISTRIBUTION WIDTH 16.7 % (11.0-15.5); WHITE BLOOD COUNT 5.4 X10e3 (4.0-10.5)
[2016-10-03 06:30] LABS: PROTHROMBIN TIME (PATIENT) 32.9 SECONDS (9.6-11.5)
[2016-10-03 07:20] LABS: BUN/CREATININE RATIO 27.27; CREATININE SERUM 1.1 mg/dL (0.6-1.4); GLOM FILT RATE Estimated 62.2 mL/min (>60); POTASSIUM 3.5 mmol/L (3.5-5.1)
[2016-10-04 06:26] LABS: HEMATOCRIT 37.4 % (38.0-50.0); HEMOGLOBIN 11.6 gm/dL (13.0-16.0); MEAN CELL VOLUME 88.7 FL (83-96); MEAN CORPUSCULAR HEMOGLOBIN 27.6 PG (28-34); MEAN CORPUSCULAR HGB CONC 31.1 g/dL (30-36); MEAN PLATELET VOLUME 8.4 FL (6.5-11.5); RED BLOOD COUNT 4.22 X10e (3.90-5.60); RED CELL DISTRIBUTION WIDTH 16.8 % (11.0-15.5); WHITE BLOOD COUNT 7.7 X10e3 (4.0-10.5)
[2016-10-04 07:20] LABS: BUN/CREATININE RATIO 33.63; CALCIUM SERUM 8.7 mg/dL (8.4-10.2); CREATININE SERUM 1.1 mg/dL (0.6-1.4); GLOM FILT RATE Estimated 62.2 mL/min (>60); POTASSIUM 3.7 mmol/L (3.5-5.1)
[2016-10-04 15:12] LABS: PROTHROMBIN TIME (PATIENT) 44.1 SECONDS (9.6-11.5)
[2016-10-05 05:24] LABS: HEMATOCRIT 38.3 % (38.0-50.0); HEMOGLOBIN 11.9 gm/dL (13.0-16.0); MEAN CORPUSCULAR HEMOGLOBIN 27.3 PG (28-34); MEAN CORPUSCULAR HGB CONC 31.1 g/dL (30-36); RED BLOOD COUNT 4.36 X10e (3.90-5.60); RED CELL DISTRIBUTION WIDTH 16.7 % (11.0-15.5); WHITE BLOOD COUNT 6.9 X10e3 (4.0-10.5)
[2016-10-05 05:52] LABS: PROTHROMBIN TIME (PATIENT) 53.9 SECONDS (9.6-11.5)
[2016-10-05 06:11] LABS: INR 4.8
[2016-10-05 06:26] LABS: BUN/CREATININE RATIO 35.45; CALCIUM SERUM 8.7 mg/dL (8.4-10.2); CREATININE SERUM 1.1 mg/dL (0.6-1.4); GLOM FILT RATE Estimated 62.2 mL/min (>60); POTASSIUM 4.1 mmol/L (3.5-5.1)
[2016-10-06 05:52] LABS: HEMATOCRIT 35.8 % (38.0-50.0); HEMOGLOBIN 11.4 gm/dL (13.0-16.0); MEAN CORPUSCULAR HEMOGLOBIN 27.6 PG (28-34); MEAN CORPUSCULAR HGB CONC 31.8 g/dL (30-36); MEAN PLATELET VOLUME 7.9 FL (6.5-11.5); RED BLOOD COUNT 4.12 X10e (3.90-5.60); RED CELL DISTRIBUTION WIDTH 16.9 % (11.0-15.5)
[2016-10-06 05:54] LABS: WHITE BLOOD COUNT 11.6 X10e3 (4.0-10.5)
[2016-10-06 06:21] LABS: CALCIUM SERUM 8.2 mg/dL (8.4-10.2); GLOM FILT RATE Estimated 69.8 mL/min (>60); POTASSIUM 3.8 mmol/L (3.5-5.1)
[2016-10-06 06:35] LABS: PROTHROMBIN TIME (PATIENT) 56.3 SECONDS (9.6-11.5)
[2016-10-06 06:37] LABS: INR 5.1
[2016-10-07 06:25] LABS: HEMATOCRIT 37.6 % (38.0-50.0); HEMOGLOBIN 11.7 gm/dL (13.0-16.0); MEAN CELL VOLUME 88.2 FL (83-96); MEAN CORPUSCULAR HEMOGLOBIN 27.4 PG (28-34); MEAN CORPUSCULAR HGB CONC 31.1 g/dL (30-36); MEAN PLATELET VOLUME 8.2 FL (6.5-11.5); RED BLOOD COUNT 4.26 X10e (3.90-5.60); WHITE BLOOD COUNT 11.2 X10e3 (4.0-10.5)
[2016-10-07 06:36] LABS: INR 2.3
[2016-10-07 06:39] LABS: PROTHROMBIN TIME (PATIENT) 25.5 SECONDS (9.6-11.5)
[2016-10-07 07:45] LABS: CALCIUM SERUM 8.5 mg/dL (8.4-10.2); GLOM FILT RATE Estimated 69.8 mL/min (>60); MAGNESIUM 2.2 mg/dL (1.6-3.0); POTASSIUM 3.9 mmol/L (3.5-5.1)
[2016-10-08 05:15] LABS: HEMATOCRIT 35.7 % (38.0-50.0); HEMOGLOBIN 11.2 gm/dL (13.0-16.0); MEAN CELL VOLUME 87.3 FL (83-96); MEAN CORPUSCULAR HEMOGLOBIN 27.3 PG (28-34); MEAN CORPUSCULAR HGB CONC 31.3 g/dL (30-36); RED BLOOD COUNT 4.09 X10e (3.90-5.60); RED CELL DISTRIBUTION WIDTH 17.5 % (11.0-15.5); WHITE BLOOD COUNT 11.2 X10e3 (4.0-10.5)
[2016-10-08 06:27] LABS: BUN/CREATININE RATIO 41.11; CALCIUM SERUM 8.7 mg/dL (8.4-10.2); CREATININE SERUM 0.9 mg/dL (0.6-1.4); GLOM FILT RATE Estimated 79.3 mL/min (>60); POTASSIUM 4.5 mmol/L (3.5-5.1)
[2016-10-08 11:18] LABS: INR 1.4; PROTHROMBIN TIME (PATIENT) 14.8 SECONDS (9.6-11.5)
[2016-10-09 06:21] LABS: INR 1.3; PROTHROMBIN TIME (PATIENT) 13.8 SECONDS (9.6-11.5)
[2016-10-09 10:35] LABS: CALCIUM SERUM 8.4 mg/dL (8.4-10.2); GLOM FILT RATE Estimated 69.8 mL/min (>60); MAGNESIUM 2.1 mg/dL (1.6-3.0); POTASSIUM 4.2 mmol/L (3.5-5.1)
== END 2016-10-09 14:15 | DRG 291 ==
LOC: CED 20:13 → CEDOF 21:31 → C5B 23:06
PROVIDERS: Emergency Medicine; Family Medicine; Internal Medicine; Internal Medicine Cardiovascular Disease; Internal Medicine Pulmonary Disease; Nurse Practitioner
PROC: B246YZZ Ultrasonography of Right and Left Heart using Other Contrast (ICD-10-PCS; principal; 2016-09-30)
DX: I11.0 Hypertensive heart disease with heart failure (principal); J18.9 Pneumonia, unspecified organism; J96.21 Acute and chronic respiratory failure with hypoxia; I47.2 Ventricular tachycardia; J44.0 Chronic obstructive pulmonary disease with (acute) lower respiratory infection; I34.0 Nonrheumatic mitral (valve) insufficiency; I36.1 Nonrheumatic tricuspid (valve) insufficiency; I48.91 Unspecified atrial fibrillation; G20 Parkinson's disease; E87.1 Hypo-osmolality and hyponatremia; E44.1 Mild protein-calorie malnutrition; J44.1 Chronic obstructive pulmonary disease with (acute) exacerbation; I50.23 Acute on chronic systolic (congestive) heart failure; K44.9 Diaphragmatic hernia without obstruction or gangrene; Z96.651 Presence of right artificial knee joint; G89.29 Other chronic pain; N40.0 Benign prostatic hyperplasia without lower urinary tract symptoms; I25.10 Atherosclerotic heart disease of native coronary artery without angina pectoris; Z95.5 Presence of coronary angioplasty implant and graft; Z79.01 Long term (current) use of anticoagulants; E78.5 Hyperlipidemia, unspecified; M06.9 Rheumatoid arthritis, unspecified; K21.9 Gastro-esophageal reflux disease without esophagitis; Z86.010 Personal history of colon polyps; Z87.891 Personal history of nicotine dependence; I45.10 Unspecified right bundle-branch block; E87.6 Hypokalemia; K22.4 Dyskinesia of esophagus
CPT/HCPCS: 36415; 36600; 51702; 71010; 71020; 74220; 80048; 80053; 80076; 80202; 81003; 82308; 82553; 82803; 83605; 83735; 83880; 84484; 85025; 85027; 85610; 85730; 87040; 87070; 87077; 87186; 87205; 87493; 87804; 90688; 90732; 92526; 92610; 93005; 93306; 94640; 94760; 96365; 96367; 96375; 97110; 97116; 97162; 97166; 97530; 99285; G0009; G8978-GP; G8979-GP; G8980-GP; G8987-GO; G8988-GO; G8989-GO; G8996-GN; G8997-GN; G8998-GN; J0456; J0696; J1040; J1650; J1940; J2543; J2920; J2930; J3260; J3370; J3430; J8610